=== PATIENT | male | born 1975 | race Two or more races ===

== ENCOUNTER 2019-05-20 17:13 | Emergency (ER) | payer OTHER ==
[~2019-05-20] VITALS: Ht 162.6 cm; Wt 76.7 kg
[2019-05-20] MEDS ORDERED: DICY20TA (17:52)
== END 2019-05-21 01:02 | disposition home or self-care (01) ==
LOC: ER 17:13
DX: N20.0 Calculus of kidney (principal); R10.32 Left lower quadrant pain

== ENCOUNTER 2020-05-05 16:18 | Outpatient (CLI) | payer OTHER ==
[~2020-05-05 16:18] MED LIST: DICY20TA
== END 2020-05-05 16:29 | disposition home or self-care (01) ==
LOC: LAB 16:18
PROVIDERS: ATTEND Radiology Diagnostic Radiology
DX: N20.0 Calculus of kidney (principal)